=== PATIENT | male | born 1995 | race Caucasian/White ===

== ENCOUNTER 2019-08-10 18:03 | Emergency (ER) | payer OTHER ==
--- NOTE | 2019-08-10 19:06 | ER ---
Nurse's Notes [facility] Name: Morgan Forte Age: 23 yrs Sex: Male : 1995 Arrival Date: 08/10/2019 Time: 18:05 Bed 19 Private MD: Diagnosis: Distal Fibular Fracture of the Left ankle Presentation: 08/10 18:21 Presenting complaint: Patient states: Ice skating and slipped and landed on left ankle jl7 wrong, reports difficulty bearing weight. Transition of care: patient was not received from another setting of care. Onset of symptoms was August 10, 2019 at 13:30. Risk Assessment: Do you want to hurt yourself or someone else? Patient reports no desire to harm self or others. Initial Sepsis Screen: Does the patient meet any 2 criteria? No. Patient's initial sepsis screen is negative. Does the patient have a suspected source of infection? No. Patient's initial sepsis screen is negative. Care prior to arrival: None. 18:21 Method Of Arrival: Wheelchair jl7 18:21 Acuity: OXANA 4 jl7 Triage Assessment: 18:22 General: Appears in no apparent distress. uncomfortable, Behavior is calm, cooperative, jl7 appropriate for age. Pain: Complains of pain in left ankle Pain currently is 0 out of 10 on a pain scale. at worst was 9 out of 10 on a pain scale. Musculoskeletal: Range of motion: limited in left ankle. Historical: - Allergies: 18:22 No Known Allergies; jl7 - Home Meds: 18:22 None [Active]; jl7 - PMHx: 18:22 None; jl7 - PSHx: 18:22 Appendectomy; jl7 - Immunization history:: Adult Immunizations not up to date. - Social history:: Smoking status: Patient/guardian denies using tobacco. - Ebola Screening: : No symptoms or risks identified at this time. Screenin:27 Abuse screen: Denies threats or abuse. Denies injuries from another. Nutritional bp screening: No deficits noted. Tuberculosis screening: No symptoms or risk factors identified. Fall Risk None identified. Assessment: 18:26 General: SEE TRIAGE NOTE. bp 19:30 Reassessment: Patient appears in no apparent distress at this time. No changes from aj1 previously documented assessment. Patient and/or family updated on plan of care and expected duration. Pain level reassessed. Patient is alert, oriented x 3, equal unlabored respirations, skin warm/dry/pink. 19:57 Reassessment: splint placement verified by ADONAY Barros. Okay to discharge patient. aj1 Vital Signs: 18:22 BP 132 / 81; Pulse 76; Resp 16 S; Temp 98.6(O); Pulse Ox 99% on R/A; Weight 122.47 kg jl7 (R); Height 5 ft. 11 in. (180.34 cm) (R); Pain 0/10; 18:22 Body Mass Index 37.66 (122.47 kg, 180.34 cm) jl7 ED Course: 18:05 Patient arrived in ED. as 18:22 Triage completed. jl7 18:22 Arm band placed on right wrist. jl7 18:25 Tom Gates, RN is Primary Nurse. bp 18:27 Jacobo Sanders PA is PHCP. jr8 18:27 Lucio Salazar MD is Attending Physician. jr8 18:27 Patient has correct armband on for positive identification. Bed in low position. Call bp light in reach. Side rails up X2. Adult w/ patient. 19:01 Ankle Left 3 View XRAY In Process Unspecified. EDMS 19:05 Sebastián Shetty MD is Referral Physician. jr8 19:57 No provider procedures requiring assistance completed. Patient did not have IV access aj1 during this emergency room visit. Administered Medications: No medications were administered Outcome: 19:06 Discharge ordered by . jr8 19:58 Discharged to home ambulatory. aj1 19:58 Condition: good 19:58 Discharge instructions given to patient, family, Instructed on discharge instructions, follow up and referral plans. no drinking with medication, no driving heavy equipment, medication usage, crutch walking, Demonstrated understanding of instructions, follow-up care, medications, crutch walking, Prescriptions given X 2. 19:58 Patient left the ED. aj1 Signatures: Dispatcher [employer] EDMS Darleen Valle RN RN aj1 Monalisa Xiao Josh, PA PA jr8 Carlyle Riley RN RN jl7 Tom Gates, JOHN RN bp
--- NOTE | 2019-08-10 19:07 | EDPHYS ---
Physician Documentation [facility] Name: Morgan Forte Age: 23 yrs Sex: Male : 1995 Arrival Date: 08/10/2019 Time: 18:05 Bed 19 Private MD: ED Physician Lucio Salazar HPI: 08/10 18:42 This 23 yrs old Male presents to ER via Wheelchair with complaints of Ankle jr8 Injury. 18:42 The patient presents with decreased range of motion, pain, swelling, tenderness. The jr8 complaints affect the left ankle. Onset: The symptoms/episode began/occurred acutely, today. Context: The problem was sustained ice skating wrink, resulted from twisted ankle while ice skating , The mechanism of injury involved inversion of the affected ankle. Associated signs and symptoms: The patient has no apparent associated signs or symptoms. Modifying factors: The symptoms are alleviated by nothing, the symptoms are aggravated by weight bearing, movement. Severity of symptoms: At their worst the symptoms were moderate, in the emergency department the symptoms are unchanged. The patient has not experienced similar symptoms in the past. The patient has not recently seen a physician. Historical: - Allergies: 18:22 No Known Allergies; jl7 - Home Meds: 18:22 None [Active]; jl7 - PMHx: 18:22 None; jl7 - PSHx: 18:22 Appendectomy; jl7 - Immunization history:: Adult Immunizations not up to date. - Social history:: Smoking status: Patient/guardian denies using tobacco. - Ebola Screening: : No symptoms or risks identified at this time. ROS: 18:42 Eyes: Negative for injury, pain, redness, and discharge, ENT: Negative for injury, jr8 pain, and discharge, Neck: Negative for injury, pain, and swelling, Cardiovascular: Negative for chest pain, palpitations, and edema, Respiratory: Negative for shortness of breath, cough, wheezing, and pleuritic chest pain, Abdomen/GI: Negative for abdominal pain, nausea, vomiting, diarrhea, and constipation, Back: Negative for injury and pain, Skin: Negative for injury, rash, and discoloration, Neuro: Negative for headache, weakness, numbness, tingling, and seizure. 18:42 MS/extremity: Positive for decreased range of motion, pain, swelling, tenderness, of the left ankle. Exam: 18:42 Eyes: Pupils equal round and reactive to light, extra-ocular motions intact. Lids and jr8 lashes normal. Conjunctiva and sclera are non-icteric and not injected. Cornea within normal limits. Periorbital areas with no swelling, redness, or edema. ENT: Nares patent. No nasal discharge, no septal abnormalities noted. Tympanic membranes are normal and external auditory canals are clear. Oropharynx with no redness, swelling, or masses, exudates, or evidence of obstruction, uvula midline. Mucous membranes moist. Neck: Trachea midline, no thyromegaly or masses palpated, and no cervical lymphadenopathy. Supple, full range of motion without nuchal rigidity, or vertebral point tenderness. No Meningismus. Chest/axilla: Normal chest wall appearance and motion. Nontender with no deformity. No lesions are appreciated. Cardiovascular: Regular rate and rhythm with a normal S1 and S2. No gallops, murmurs, or rubs. Normal PMI, no JVD. No pulse deficits. Respiratory: Lungs have equal breath sounds bilaterally, clear to auscultation and percussion. No rales, rhonchi or wheezes noted. No increased work of breathing, no retractions or nasal flaring. Abdomen/GI: Soft, non-tender, with normal bowel sounds. No distension or tympany. No guarding or rebound. No evidence of tenderness throughout. Back: No spinal tenderness. No costovertebral tenderness. Full range of motion. Skin: Warm, dry with normal turgor. Normal color with no rashes, no lesions, and no evidence of cellulitis. Neuro: Awake and alert, GCS 15, oriented to person, place, time, and situation. Cranial nerves II-XII grossly intact. Motor strength 5/5 in all extremities. Sensory grossly intact. Cerebellar exam normal. Normal gait. 18:42 Musculoskeletal/extremity: Extremities: grossly normal except: noted in the left ankle: decreased ROM, pain, swelling, tenderness, lateral ankle , Circulation is intact in all extremities. Pulses: noted to be 2+ in the right radial artery, right dorsalis pedis artery, left radial artery and left dorsalis pedis artery, Sensation intact. Vital Signs: 18:22 BP 132 / 81; Pulse 76; Resp 16 S; Temp 98.6(O); Pulse Ox 99% on R/A; Weight 122.47 kg jl7 (R); Height 5 ft. 11 in. (180.34 cm) (R); Pain 0/10; 18:22 Body Mass Index 37.66 (122.47 kg, 180.34 cm) jl7 Procedures: 19:04 Splinting: Splint applied to left leg using Orthoglass splint, applied by tech. nurse. jr8 Examined by ca, post splint application: neurovascular intact, 2+ distal pulses palpable, brisk capillary refill noted, Patient tolerated well. Crutch training provided to patient and/or family. Return demonstration given. MDM: 18:27 Patient medically screened. jr8 19:05 Data reviewed: vital signs, nurses notes, radiologic studies, plain films. Data jr8 interpreted: Pulse oximetry: on room air is 99 %. Interpretation: normal. Test interpretation: by ED physician or midlevel provider: plain radiologic studies, spiral fracture distal fibula left ankle. Counseling: I had a detailed discussion with the patient and/or guardian regarding: the historical points, exam findings, and any diagnostic results supporting the discharge/admit diagnosis, radiology results, the need for outpatient follow up, a orthopedic surgeon, to return to the emergency department if symptoms worsen or persist or if there are any questions or concerns that arise at home. 08/10 18:26 Order name: Ankle Left 3 View XRAY; Complete Time: 19:25 bp 08/10 19:04 Order name: Posterior Leg Splint [facility] 08/10 19:04 Order name: Crutches 8 Administered Medications: No medications were administered Disposition: 08/11 10:34 Co-signature as Attending Physician, Lucio Salazar MD I agree with the assessment and trisha plan of care. Disposition: 08/10/19 19:06 Discharged to Home. Impression: Distal Fibular Fracture of the Left ankle. - Condition is Stable. - Discharge Instructions: Displaced Fibular Ankle Fracture Treated With Open Reduction, Adult, Undisplaced Fibular Ankle Fracture Treated With Immobilization, Adult. - Prescriptions for Ibuprofen 800 mg Oral Tablet - take 1 tablet by ORAL route every 12 hours As needed take with food; 20 tablet. Tylenol- Codeine #3 300-30 mg Oral Tablet - take 2 tablets by ORAL route every 6 hours As needed; 20 tablet. - Medication Reconciliation Form, Thank You Letter, Antibiotic Education, Prescription Opioid Use form. - Follow up: Sebastián Shetty MD; When: 2 - 3 days; Reason: Recheck today's complaints, Continuance of care, Re-evaluation by your physician. - Problem is new. - Symptoms have improved. Signatures: Dispatcher [employer] EDDarleen Kelley RN RN aj1 Lucio Salazar MD MD cha Roszak, Josh, PA PA jr8 Carlyle Riley RN RN jl7 Corrections: (The following items were deleted from the chart) 08/10 19:58 19:06 08/10/2019 19:06 Discharged to Home. Impression: Distal Fibular Fracture of the aj1 Left ankle. Condition is Stable. Forms are Medication Reconciliation Form, Thank You Letter, Antibiotic Education, Prescription Opioid Use. Follow up: Sebastián Shetty; When: 2 - 3 days; Reason: Recheck today's complaints, Continuance of care, Re-evaluation by your physician. Problem is new. Symptoms have improved. jr8
--- NOTE | 2019-08-10 19:17 | RAD REPORT ---
EXAM DESCRIPTION: RAD - Ankle Left 3 View - 08/10/2019 7:00 pm CLINICAL HISTORY: Slip and fall, leg pain, ankle pain COMPARISON: None. FINDINGS: Spiral type fracture of the distal fibula present without distraction or angulation. Promi nent lateral soft tissue swelling is present. No tibia fracture. Ankle mortise is normal. No joint sp crystal narrowing. IMPRESSION: Distal left fibula fracture without distraction or angulation.
[2019-08-10 22:43] VITALS: BP 132/81; TEMP 98.6; O2SAT 99
== END 2019-08-10 19:58 | disposition home or self-care (01) ==
LOC: ER 18:03
PROC: 2W3RX1Z Immobilization of Left Lower Leg using Splint (ICD-10-PCS; principal; 2019-08-10)
DX: S82.832A Other fracture of upper and lower end of left fibula, initial encounter for closed fracture (principal); X50.1XXA Overexertion from prolonged static or awkward postures, initial encounter; Y93.21 Activity, ice skating; Y92.330 Ice skating rink (indoor) (outdoor) as the place of occurrence of the external cause
CPT/HCPCS: 99283

== ENCOUNTER 2020-11-14 18:35 | Emergency (ER) | payer OTHER ==
[2020-11-14] MEDS ORDERED: NA CHLORIDE 0.9% 1,000 ML ONE (19:21)
[2020-11-14] MEDS ORDERED: ONDANSETRON 4 MG/2 ML VIAL ONE ×2 (19:22→20:43)
[2020-11-14] MEDS ORDERED: KETOROLAC 30 MG/ML INJ ONE (19:22)
[2020-11-14 19:33] LABS: Absolute Lymphocytes (CBC) 0.5 K/uL (0.7-4.9); Basophils % 0.2 % (0-1.3); Hematocrit 47.3 % (39.6-49.0); Lymphocytes % 7.5 % (15.3-44.8); MPV 8.7 fL (7.6-11.3)
--- NOTE | 2020-11-14 19:38 | RAD REPORT ---
EXAM DESCRIPTION: US - Abdomen Exam Limited - 11/14/2020 7:27 pm CLINICAL HISTORY: Abdominal pain. COMPARISON: None. FINDINGS: Mild gallbladder distention. The gallbladder wall is not thickened. A gallstone is not seen. The biliary tree is normal caliber. IMPRESSION: Mild gallbladder distention. Otherwise unremarkable exam
[2020-11-14 19:48] LABS: ALT/SGPT 25 U/L (12-78); AST/SGOT 15 U/L (15-37); Albumin 3.9 g/dL (3.4-5.0); Alkaline Phosphatase 65 U/L (45-117); BUN Blood Urea Nitrogen 12 mg/dL (7-18); Bicarbonate 29 mmol/L (21-32); Bilirubin Direct 0.2 mg/dL (0-0.2); Bilirubin Total 0.8 mg/dL (0.2-1.0); Glucose Level 94 mg/dL (74-106); Lipase 91 U/L (73-393); Potassium 3.7 mmol/L (3.5-5.1); Protein, Total 7.3 g/dL (6.4-8.2); Sodium Level 142 mmol/L (136-145)
--- NOTE | 2020-11-14 19:53 | EDPHYS ---
Physician Documentation [facility] Name: Morgan Forte Age: 24 yrs Sex: Male : 1995 Arrival Date: 11/14/2020 Time: 18:36 Bed 20 Private MD: Philip Dumont B ED Physician Duane Enriquez HPI: 11/14 19:50 This 24 yrs old Male presents to ER via Ambulatory with complaints of kb Abdominal Pain, Nausea. 19:50 The patient presents with abdominal pain in the upper abdomen. Onset: The kb symptoms/episode began/occurred this morning. The symptoms do not radiate. Associated signs and symptoms: Pertinent positives: nausea, vomiting, and diarrhea. The symptoms are described as constant. Modifying factors: The symptoms are alleviated by nothing, the symptoms are aggravated by food. Severity of pain: At its worst the pain was moderate in the emergency department the pain is unchanged. The patient has not experienced similar symptoms in the past. The patient has not recently seen a physician. Historical: - Allergies: 18:53 No Known Allergies; aa5 - Home Meds: 18:53 Lexapro Oral [Active]; aa5 - PMHx: 18:53 Depression; aa5 - PSHx: 18:53 Appendectomy; aa5 - Immunization history:: Adult Immunizations up to date. - Social history:: Smoking status: Reported history of juuling and/or vaping. ROS: 19:49 Constitutional: Negative for fever, chills, and weight loss, Cardiovascular: Negative kb for chest pain, palpitations, and edema, Respiratory: Negative for shortness of breath, cough, wheezing, and pleuritic chest pain, MS/Extremity: Negative for injury and deformity, Skin: Negative for injury, rash, and discoloration, Neuro: Negative for headache, weakness, numbness, tingling, and seizure. 19:49 Abdomen/GI: Positive for abdominal pain, nausea, vomiting, and diarrhea. Exam: 19:50 Constitutional: This is a well developed, well nourished patient who is awake, alert, kb and in no acute distress. Head/Face: Normocephalic, atraumatic. Cardiovascular: Regular rate and rhythm with a normal S1 and S2. No gallops, murmurs, or rubs. No pulse deficits. Respiratory: Respirations even and unlabored. No increased work of breathing, no retractions or nasal flaring. Abdomen/GI: Soft, non-tender. No distention Skin: Warm, dry with normal turgor. Normal color. MS/ Extremity: Pulses equal, no cyanosis. Neurovascular intact. Full, normal range of motion. Neuro: Awake and alert, GCS 15, oriented to person, place, time, and situation. Moves all extremities. Normal gait. Vital Signs: 18:45 BP 138 / 90; Pulse 106; Resp 18 S; Temp 97.9(O); Pulse Ox 99% on R/A; Weight 122.47 kg aa5 (R); Height 5 ft. 10 in. (177.80 cm) (R); Pain 2/10; 20:30 BP 114 / 68; Pulse 88; Resp 19; Temp 98.5; Pulse Ox 99% ; rr5 20:46 BP 116 / 85; Pulse 80; Resp 17; Pulse Ox 98% ; Pain 1/10; rr5 18:45 Body Mass Index 38.74 (122.47 kg, 177.80 cm) aa5 MDM: 18:45 Patient medically screened. kb 19:49 Data reviewed: vital signs, nurses notes. Data interpreted: Pulse oximetry: on room air kb is 99 %. Interpretation: normal. Counseling: I had a detailed discussion with the patient and/or guardian regarding: the historical points, exam findings, and any diagnostic results supporting the discharge/admit diagnosis, lab results, radiology results, the need for outpatient follow up, a family practitioner, to return to the emergency department if symptoms worsen or persist or if there are any questions or concerns that arise at home. 11/14 18:51 Order name: Basic Metabolic Panel kb 11/14 18:51 Order name: CBC with Diff kb 11/14 18:51 Order name: Hepatic Function; Complete Time: 19:48 kb 11/14 18:51 Order name: Lipase; Complete Time: 19:48 kb 11/14 18:51 Order name: Basic Metabolic Panel; Complete Time: 19:48 EDMS 11/14 19:54 Order name: CBC Smear Scan EDMS 11/14 18:51 Order name: US Abdomen Limited; Complete Time: 19:39 kb 11/14 18:51 Order name: IV Saline Lock; Complete Time: 19:31 kb 11/14 18:51 Order name: Labs collected and sent; Complete Time: 19:31 kb Administered Medications: 19:28 Drug: NS 0.9% 1000 ml Route: IV; Rate: 1000 ml; Site: right antecubital; rr5 20:48 Follow up: Response: No adverse reaction; IV Status: Completed infusion; IV Intake: rr5 1000ml 19:28 Drug: Zofran (Ondansetron) 4 mg Route: IVP; Site: right antecubital; rr5 19:56 Follow up: Response: No adverse reaction; Marked relief of symptoms rr5 19:30 Drug: TORadol - Ketorolac 15 mg Route: IVP; Site: right antecubital; rr5 19:56 Follow up: Response: No adverse reaction rr5 19:55 Drug: Pepcid 20 mg Route: IVP; Site: right antecubital; rr5 20:48 Follow up: Response: No adverse reaction rr5 19:55 Drug: Bentyl 20 mg Route: PO; rr5 20:48 Follow up: Response: No adverse reaction rr5 20:23 Drug: Zofran (Ondansetron) 4 mg Route: IVP; Site: right antecubital; rr5 20:48 Follow up: Response: No adverse reaction rr5 20:29 Drug: morphine 4 mg {Note: rass 0.} Route: IVP; Site: right antecubital; rr5 20:47 Follow up: Response: No adverse reaction; Marked relief of symptoms; RASS: Alert and rr5 Calm (0) Disposition: 11/15 19:27 Co-signature as Attending Physician, Duane Enriquez MD. ma2 Disposition: 11/14/20 19:53 Discharged to Home. Impression: Upper abdominal pain, unspecified. - Condition is Stable. - Discharge Instructions: Viral Gastroenteritis, Adult, [id number], Abdominal Pain, Adult, [id number]. - Prescriptions for Bentyl 20 mg Oral Tablet - take 1 tablet by ORAL route every 6 hours As needed; 20 tablet. Zofran 4 mg Oral Tablet - take 1 tablet by ORAL route every 6 hours As needed; 20 tablet. - Medication Reconciliation Form, Thank You Letter, Antibiotic Education, Prescription Opioid Use, Work release form form. - Follow up: Emergency Department; When: As needed; Reason: Worsening of condition. Follow up: Private Physician; When: 2 - 3 days; Reason: Recheck today's complaints, Continuance of care, Re-evaluation by your physician. Signatures: Dispatcher [employer] Kina Iraheta, DEVORA THOMAS-Mehnaz Tony, RN RN aa5 Duane Enriquez MD MD ma2 Talat Gonzales RN RN rr5 Corrections: (The following items were deleted from the chart) 11/14 20:47 19:53 11/14/2020 19:53 Discharged to Home. Impression: Upper abdominal pain, rr5 unspecified. Condition is Stable. Discharge Instructions: Viral Gastroenteritis, Adult, [id number], Abdominal Pain, Adult, [id number]. Prescriptions for Bentyl 20 mg Oral Tablet - take 1 tablet by ORAL route every 6 hours As needed; 20 tablet, Zofran 4 mg Oral Tablet - take 1 tablet by ORAL route every 6 hours As needed; 20 tablet. and Forms are Medication Reconciliation Form, Thank You Letter, Antibiotic Education, Prescription Opioid Use. Follow up: Emergency Department; When: As needed; Reason: Worsening of condition. Follow up: Private Physician; When: 2 - 3 days; Reason: Recheck today's complaints, Continuance of care, Re-evaluation by your physician. kb
--- NOTE | 2020-11-14 19:53 | ER ---
Nurse's Notes [facility] Name: Morgan Forte Age: 24 yrs Sex: Male : 1995 Arrival Date: 11/14/2020 Time: 18:36 Bed 20 Private MD: Philip Dumont B Diagnosis: Upper abdominal pain, unspecified Presentation: 11/14 18:45 Chief complaint: Patient states: RUQ pain that began today after eating breakfast, pt aa5 states "I also have a lot of burping and passing gas". Pt reports nausea and diarrhea, denies vomiting. 18:45 Coronavirus screen: nausea. Ebola Screen: Patient negative for fever greater than or aa5 equal to 101.5 degrees Fahrenheit, and additional compatible Ebola Virus Disease symptoms. Initial Sepsis Screen: Does the patient meet any 2 criteria? No. Patient's initial sepsis screen is negative. Does the patient have a suspected source of infection? No. Patient's initial sepsis screen is negative. Risk Assessment: Do you want to hurt yourself or someone else? Patient reports no desire to harm self or others. Onset of symptoms was October 2020. 18:45 Acuity: OXANA 3 aa5 18:45 Method Of Arrival: Ambulatory aa5 Historical: - Allergies: 18:53 No Known Allergies; aa5 - Home Meds: 18:53 Lexapro Oral [Active]; aa5 - PMHx: 18:53 Depression; aa5 - PSHx: 18:53 Appendectomy; aa5 - Immunization history:: Adult Immunizations up to date. - Social history:: Smoking status: Reported history of juuling and/or vaping. Screenin:37 Abuse screen: Denies threats or abuse. Denies injuries from another. Nutritional rr5 screening: No deficits noted. Tuberculosis screening: No symptoms or risk factors identified. Fall Risk IV access (20 points). Total Sald[place] Fall Scale indicates No Risk (0-24 pts). Assessment: 19:30 General: Appears in no apparent distress. uncomfortable, Behavior is calm, cooperative, rr5 appropriate for age. 19:30 Pain: Complains of pain in right upper quadrant Pain currently is 7 out of 10 on a pain rr5 scale. Quality of pain is described as aching, Pain began gradually, Is intermittent. Neuro: Level of Consciousness is awake, alert, obeys commands, Oriented to person, place, time. Cardiovascular: Capillary refill < 3 seconds Patient's skin is warm and dry. Respiratory: Airway is patent Respiratory effort is even, unlabored, Respiratory pattern is regular, symmetrical. GI: Abdomen is round non-distended, Abd is soft and non tender Reports upper abdominal pain, nausea, vomiting. : No signs and/or symptoms were reported regarding the genitourinary system. EENT: No signs and/or symptoms were reported regarding the EENT system. Derm: Skin is intact, is healthy with good turgor, Skin temperature is warm. Musculoskeletal: Capillary refill < 3 seconds. 20:00 Reassessment: Patient appears in no apparent distress at this time. Patient is alert, rr5 oriented x 3, equal unlabored respirations, skin warm/dry/pink. for discharge awaiting for IV fluid to consume Patient states feeling better. Patient states symptoms have improved. 20:35 Reassessment: complaint of abdominal pain, ED provider aware with order made and rr5 carried out. Vital Signs: 18:45 BP 138 / 90; Pulse 106; Resp 18 S; Temp 97.9(O); Pulse Ox 99% on R/A; Weight 122.47 kg aa5 (R); Height 5 ft. 10 in. (177.80 cm) (R); Pain 2/10; 20:30 BP 114 / 68; Pulse 88; Resp 19; Temp 98.5; Pulse Ox 99% ; rr5 20:46 BP 116 / 85; Pulse 80; Resp 17; Pulse Ox 98% ; Pain 1/10; rr5 18:45 Body Mass Index 38.74 (122.47 kg, 177.80 cm) aa5 ED Course: 18:36 Patient arrived in ED. am2 18:37 Philip Dumont MD is Private Physician. am2 18:39 Kina Dodson FNP-C [facility]. kb 18:39 Duane Enriquez MD is Attending Physician. kb 18:45 Arm band placed on Patient placed in an exam room, on a stretcher. aa5 18:52 Triage completed. aa5 19:15 ultrasound. rr5 19:25 Inserted saline lock: 20 gauge in right antecubital area, using aseptic technique. rr5 Blood collected. 19:27 US Abdomen Limited In Process Unspecified. EDMS 19:30 Talat Gonzales, RN is Primary Nurse. rr5 20:04 Patient has correct armband on for positive identification. Bed in low position. Pulse rr5 ox on. NIBP on. 20:46 No provider procedures requiring assistance completed. IV discontinued, intact, rr5 bleeding controlled, No redness/swelling at site. Pressure dressing applied. Administered Medications: 19:28 Drug: NS 0.9% 1000 ml Route: IV; Rate: 1000 ml; Site: right antecubital; rr5 20:48 Follow up: Response: No adverse reaction; IV Status: Completed infusion; IV Intake: rr5 1000ml 19:28 Drug: Zofran (Ondansetron) 4 mg Route: IVP; Site: right antecubital; rr5 19:56 Follow up: Response: No adverse reaction; Marked relief of symptoms rr5 19:30 Drug: TORadol - Ketorolac 15 mg Route: IVP; Site: right antecubital; rr5 19:56 Follow up: Response: No adverse reaction rr5 19:55 Drug: Pepcid 20 mg Route: IVP; Site: right antecubital; rr5 20:48 Follow up: Response: No adverse reaction rr5 19:55 Drug: Bentyl 20 mg Route: PO; rr5 20:48 Follow up: Response: No adverse reaction rr5 20:23 Drug: Zofran (Ondansetron) 4 mg Route: IVP; Site: right antecubital; rr5 20:48 Follow up: Response: No adverse reaction rr5 20:29 Drug: morphine 4 mg {Note: rass 0.} Route: IVP; Site: right antecubital; rr5 20:47 Follow up: Response: No adverse reaction; Marked relief of symptoms; RASS: Alert and rr5 Calm (0) Intake: 20:48 IV: 1000ml; Total: 1000ml. rr5 Outcome: 19:53 Discharge ordered by . mely 20:46 Discharged to home ambulatory. rr5 20:46 Condition: stable 20:46 Discharge instructions given to patient, Instructed on discharge instructions, follow up and referral plans. medication usage, Demonstrated understanding of instructions, follow-up care, medications, Prescriptions given X 2. 20:47 Patient left the ED. rr5 Signatures: Dispatcher [employer] EDKY Kina Dodson, DEVORA CONDEP-Mehnaz Tony RN RN aa5 Brittany Vazquez am2 Talat Gonzales, RN RN rr5 Corrections: (The following items were deleted from the chart) 20:34 20:30 BP 114 / 68; Pulse 102bpm; Resp 19bpm; Pulse Ox 99%; Temp 98.5F; rr5 rr5
[2020-11-14 19:54] LABS: Blood Morphology Comment NOTED (NOT SEEN); Platelet Estimate ADEQ; Poikilocytosis 1+; White Blood Cell Scan OK (OK)
[2020-11-14] MEDS ORDERED: DICYCLOMINE HCL 10 MG CAP ONE (20:09)
[2020-11-14] MEDS ORDERED: FAMOTIDINE 20 MG/2 ML VIAL IV ONE (20:09)
[2020-11-14] MEDS ORDERED: MORPHINE 4 MG/ML SYR ONE (20:43)
[2020-11-14 20:58] VITALS: TEMP 98.5
[2020-11-14 20:59] VITALS: BP 116/85; O2SAT 98
== END 2020-11-14 20:47 | disposition home or self-care (01) ==
LOC: ER 18:35
DX: R10.10 Upper abdominal pain, unspecified (principal); R11.2 Nausea with vomiting, unspecified; F32.9 Major depressive disorder, single episode, unspecified
CPT/HCPCS: 96361; 85025; 80048; 36415; 80076; 83690; 76705; 96375; 96374; 99284; J7030; J2405 ×2